=== PATIENT | male | born 1960 | race Caucasian/White ===

== ENCOUNTER 2016-12-31 14:02 | Emergency (ER) | payer OTHER ==
[~2016-12-31] VITALS: Ht 170.2 cm; Wt 105.0 kg
[~2016-12-31 14:02] MED LIST: COLC1TAB7 PO; EC-N500T7 PO; HYDR-3533 PO
[2016-12-31 14:05] VITALS: BP 144/96; PULSE 85; RESP 24; TEMP 98.6; O2SAT 93
[2016-12-31 14:32] VITALS: BP 166/93; PULSE 78; RESP 16; O2SAT 93
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
[2016-12-31] MEDS ORDERED: IBUPROFEN 800 MG TAB PO ONE (14:45)
--- NOTE | 2016-12-31 15:16 | RADRPT ---
EXAM DATE/TIME: 12/31/2016 14:52 [facility] COMPARISON: No previous studies available for comparison. INDICATIONS : Right leg pain. Patient was kicked in the back of the leg by a horse. MEDICAL HISTORY : None. SURGICAL HISTORY : None. ENCOUNTER: Initial ACUITY: 1 day PAIN SCORE: 10/10 LOCATION: Right lower leg. FINDINGS: 2 views right lower leg. Bone alignment within normal limits. There are multiple faint linear lucenci es in the anterior cortex on the lateral view indicating possible stress fracture. No evidence of acu te traumatic fracture. Posterior soft tissue swelling. CONCLUSION: Possible anterior tibial shaft stress fracture. No evidence of acute traumatic fracture. Posterior so ft tissue swelling noted. Jesse Carmichael MD on December 31, 2016 at 15:13 Board Certified Radiologist. This report was verified electronically.
[2016-12-31 16:07] VITALS: RESP 16
--- NOTE | 2016-12-31 17:22 | RADRPT ---
EXAM DATE/TIME: 12/31/2016 16:51 [facility] COMPARISON: No previous studies available for comparison. INDICATIONS : Right lower leg pain; kicked bu horse. RADIATION DOSE: 12.35 CTDIvol (mGy) MEDICAL HISTORY : Hypertension. SURGICAL HISTORY : None. ENCOUNTER: Initial ACUITY: 1 day PAIN SCALE: 6/10 LOCATION: Right lower leg TECHNIQUE: Volumetric scanning of the tibia and fibula was performed. Using automated exposure control and adju stment of the mA and/or kV according to patient size, radiation dose was kept as low as reasonably ac hievable to obtain optimal diagnostic quality images. DICOM format image data is available [facility] for review and comparison. FINDINGS: BONES: No evidence of fracture. Alignment is within normal limits. JOINTS: No evidence of joint narrowing or effusion. SOFT TISSUES: Superficial soft tissue hematoma is seen medially at the level of the distal shaft measuring 4.2 x 1. 3 cm. CONCLUSION: No evidence of fracture. 4 x 1 cm superficial soft tissue hematoma medially. Jesse Carmichael MD on December 31, 2016 at 17:17 Board Certified Radiologist. This report was verified electronically.
[2016-12-31] MEDS ORDERED: PERC5TAB12 PO (17:27)
[2016-12-31] MEDS ORDERED: IBUP800T23 PO (17:27)
== END 2016-12-31 17:43 | disposition home or self-care (01) ==
LOC: NEPC 14:02
DX: S80.11XA Contusion of right lower leg, initial encounter (principal); M32.9 Systemic lupus erythematosus, unspecified; E78.00 Pure hypercholesterolemia, unspecified; M10.9 Gout, unspecified; I10 Essential (primary) hypertension; W55.12XA Struck by horse, initial encounter
CPT/HCPCS: 73590; 73700; 99285